=== PATIENT | male | born 1980 | race Caucasian/White ===

== ENCOUNTER 2016-07-12 08:43 | Emergency (ER) | payer OTHER ==
[~2016-07-12] VITALS: Ht 185.4 cm; Wt 89.9 kg
[~2016-07-12 08:43] MED LIST: ACET500C5 PO; CLIN-73 PO
[2016-07-12 08:48] VITALS: Ht 185.4 cm; Wt 89.9 kg
[2016-07-12] MEDS ORDERED: CIPR500T4 PO (10:29)
[2016-07-12] MEDS ORDERED: IBUP-1542 PO (10:30)
[2016-07-12] MEDS ORDERED: ELEC100080 PO (10:30)
[2016-07-12] MEDS ORDERED: ACET500C5 PO (10:31)
--- NOTE | 2016-07-12 10:42 | ERD ---
ER Documentation Chief Complaint Date/Time DATE: 07/12/16 TIME: 10:35 Chief Complaint ap with diarrhea x 3 days HPI Is a 35-year-old male who presents to the emergency department today with his complaining of multiple bouts of diarrhea for the past 4 days. Per the reports of the the diarrhea was bad and then stopped and then returned again. Mother states that the went to [place] one week ago when he came back diarrhea started shortly thereafter. States he had a fever last night of 103. States he took Motrin for his fever. States he is eating normally, denies any vomiting, blood in his stool, abdominal pain. ROS All systems reviewed and are negative except as per history of present illness. Medications Home Meds Active Scripts Acetaminophen* (Tylophen*) 500 Mg Capsule, 1 CAP PO Q6H Y for PAIN AND OR ELEVATED TEMP, #30 CAP Prov:RENA VALENCIAC 07/12/16 Ibuprofen* (Motrin*) 600 Mg Tab, 600 MG PO Q6, #30 TAB Prov:RENA VALENCIA PA-C 07/12/16 Electrolyte,Oral (Pedialyte) 1,000 Ml Solution, 100 ML PO Q6 Y for DIARRHEA, # 1000 ML Prov:RENA VALENCIA PA-C 07/12/16 Ciprofloxacin Hcl* (Ciprofloxacin Hcl*) 500 Mg Tablet, 500 MG PO BID for 5 Days , TAB Prov:RENA VALENCIAC 07/12/16 Clindamycin Hcl* (Clindamycin Hcl*) 300 Mg Capsule, 600 MG PO Q8 for 5 Days, CAP Prov:NANCY LYMAN PA-C 12/11/14 Acetaminophen* (Tylophen*) 500 Mg Capsule, 500 MG PO Q6H Y for PAIN, #20 TAB Prov:NANCY LYMANC 12/11/14 Allergies Allergies: Coded Allergies: No Known Allergy (Unverified , 12/13/14) PMhx/Soc Medical and Surgical Hx: pt denies Surgical Hx Hx Neurological Disorder: Yes (cva 3 eyars ago) Hx Alcohol Use: No Hx Substance Use: No Hx Tobacco Use: No Smoking Status: Never smoker Physical Exam Vitals Vital Signs Date Time Temp Pulse Resp B/P Pulse Ox O2 Delivery O2 Flow Rate FiO2 07/12/16 08:48 98.1 82 20 126/64 99 Physical Exam Const: No acute distress, sitting up Head: Atraumatic Eyes: Normal Conjunctiva ENT: Normal External Ears, Nose and Mouth. Neck: Full range of motion..~ No meningismus. Resp: Clear to auscultation bilaterally Cardio: Regular rate and rhythm, no murmurs Abd: Soft, non tender, non distended. Normal bowel sounds. No right lower quadrant pain. No left lower quadrant pain. Skin: No petechiae or rashes Neur: Awake and alert Psych: Normal Mood and Affect Procedures/MDM This is a 35-year-old male who presents the emergency department today complaining of multiple bouts of diarrhea and some fevers that started a couple days after he returned from [place] approximately 1 week ago. I do not feel the patient requires laboratory workup or imaging at this time given that he is eating normally and he is afebrile and he has no abdominal pain on physical exam. Patient symptoms at this time most consistent with diarrhea possibly traveler's diarrhea versus gastroenteritis. Low suspicion for acute surgical abdomen, diverticulitis. Patient will be given a prescription for Cipro, Pedialyte, Tylenol and Motrin. At this time the patient is stable for discharge and outpatient management. Patient should follow up with their PCP in the next 1-2 days. They may return to the emergency department sooner for any persistent or worsening of symptoms. Patient understood and agreed with the plan. Departure Diagnosis: Primary Impression: Diarrhea Diarrhea type: unspecified type Qualified Code: R19.7 - Diarrhea, unspecified type Condition: Fair Patient Instructions: Treating Diarrhea, Traveler's Diarrhea (6Y-Adult) Referrals: [facility] () Usted se rich hecho un examen mdico de control que le indica que no est en venancio condicin que requiera tratamiento urgente en el Departamento de Emergencia. Un estudio ms profundo y el tratamiento de nagy condicin pueden esperar sin ningn riesgo hasta que usted sea atendida/o en el consultorio de nagy mdico o venancio cl ciara. Es responsabilidad suya arreglar venancio kiana para el seguimiento del liza. MANEJO DE CONDICIONES NO URGENTES EN EL FUTURO 1) Si usted tiene un mdico de atencin primaria: Usted debera llamar a nagy mdico de atencin primaria antes de venir al departamento de emergencia. Despus de las horas de consultorio, nagy doctor o nagy asociado/a est disponible por telfono. El mdico o enfermero de suleiman en el servicio telefnico puede asesorarle por marek medio para atender el problema, o liza contrario se puede programar venancio kiana. 2) Si usted no tiene un mdico de atencin primaria: Llame al mdico o clnica de referencia que aparece abajo tiff las horas de consultorio para hacer venancio kiana para que le vean. CLINICAS: [facility] [phone] [facility] [phone] [address] [facility] [phone] [address] [facility] [facility] [phone] [address] [facility] [address] [place] [id number] [phone] [facility]. [phone] [address] Additional Instructions: Llame al doctor MAANA y vonnie venancio KIANA PARA DENTRO DE 1-2 TORRES.Dgale a la secretaria que nosotros le instruimos hacer esta kiana.Avise o llame si nagy condicin se empeora antes de la kiana. Regresa aqui si peor o no mejor. Take antibiotics as prescribed Take Pedialyte or Gatorade and drink plenty of clear fluids to stay hydrated Take Tylenol every 4 hours or Motrin every 6 hours for fever RENA VALENCIA PA-C Jul 12, 2016 10:42
== END 2016-07-12 10:51 | disposition home or self-care (01) ==
LOC: FTE 08:43
DX: R19.7 Diarrhea, unspecified (principal)
CPT/HCPCS: 99283

== ENCOUNTER 2017-01-10 20:18 | Emergency (ER) | payer OTHER ==
[~2017-01-10] VITALS: Ht 177.8 cm; Wt 76.0 kg
[~2017-01-10 20:18] MED LIST changes: +CIPR500T4 PO; +ELEC100080 PO; +IBUP-1542 PO
[2017-01-10 20:32] VITALS: Ht 177.8 cm; Wt 76.0 kg
[2017-01-10] MEDS ORDERED: LIDOCAINE 1% (MDV) 20 ML INJ SC ONE (22:00)
[2017-01-10] MEDS ORDERED: SULF1TAB31 PO (22:32)
[2017-01-10] MEDS ORDERED: CEPH-443 PO (22:32)
--- NOTE | 2017-01-11 03:31 | ERD ---
ER Documentation Chief Complaint Chief Complaint right thumb abscess HPI This is a 36-year-old male presenting to the emergency department for abscess to right thumb. Patient states he had a nail from a nail gun accidentally shot into his right thumb. Patient removed the nail immediately and then began having swelling. Patient states in the last 2 days the swelling has increased. Patient is also having pain to abscess. No numbness or tingling. No loss of sensation. ROS All systems reviewed and are negative except as per history of present illness. Medications Home Meds Active Scripts Cephalexin* (Keflex*) 500 Mg Capsule, 500 MG PO QID for 5 Days, CAP Prov:JOSE F FINE NP 01/10/17 Sulfamethoxazole/Trimethoprim* (Bactrim Ds* Tablet) 1 Each Tablet, 1 TAB PO BID , #14 TAB Prov:JOSE F FINE NP 01/10/17 Acetaminophen* (Tylophen*) 500 Mg Capsule, 1 CAP PO Q6H Y for PAIN AND OR ELEVATED TEMP, #30 CAP Prov:RENA VALENCIA PA-C 07/12/16 Ibuprofen* (Motrin*) 600 Mg Tab, 600 MG PO Q6, #30 TAB Prov:RENA VALENCIA PA-C 07/12/16 Electrolyte,Oral (Pedialyte) 1,000 Ml Solution, 100 ML PO Q6 Y for DIARRHEA, # 1000 ML Prov:RENA VALENCIAC 07/12/16 Ciprofloxacin Hcl* (Ciprofloxacin Hcl*) 500 Mg Tablet, 500 MG PO BID for 5 Days , TAB Prov:RENA VALENCIA PA-C 07/12/16 Clindamycin Hcl* (Clindamycin Hcl*) 300 Mg Capsule, 600 MG PO Q8 for 5 Days, CAP Prov:NANCY LYMAN PA-C 12/11/14 Acetaminophen* (Tylophen*) 500 Mg Capsule, 500 MG PO Q6H Y for PAIN, #20 TAB Prov:NANCY LYMAN PA-C 12/11/14 Allergies Allergies: Coded Allergies: No Known Allergy (Unverified , 12/13/14) PMhx/Soc Medical and Surgical Hx: pt denies Surgical Hx History of Surgery: No Hx Neurological Disorder: Yes (cva 2013) Hx Respiratory Disorders: No Hx Cardiac Disorders: No Hx Psychiatric Problems: No Hx Miscellaneous Medical Probl: No Hx Alcohol Use: No Hx Substance Use: No Hx Tobacco Use: No Smoking Status: Never smoker Physical Exam Vitals Vital Signs Date Time Temp Pulse Resp B/P Pulse Ox O2 Delivery O2 Flow Rate FiO2 01/10/17 20:32 98.2 69 20 136/83 99 Physical Exam Const: No acute distress, alert Head: Atraumatic Eyes: Normal Conjunctiva ENT: Normal External Ears, Nose and Mouth. Neck: Full range of motion..~ No meningismus. Resp: Clear to auscultation bilaterally Cardio: Regular rate and rhythm, no murmurs Abd: Soft, non tender, non distended. Normal bowel sounds Skin: 2cm raised lesion to palmar aspect of right thumb, no surrounding erythema, no drainage or warmth. no fluctuance. Back: No midline or flank tenderness Ext: No cyanosis, or edema Neur: Awake and alert Psych: Normal Mood and Affect Results 24 hrs Current Medications Medications (Trade) Dose Ordered Sig/January Route PRN Reason Start Time Stop Time Status Last Admin Dose Admin Lidocaine (Xylocaine 1% (Mdv) 20 ml) 20 ml ONCE ONCE SC 01/10/17 22:00 01/10/17 22:01 DC Procedures/MDM MDM: 36 year old male presents to ER with right thumb abscess 3 days after nail gun injury. There is no fluctuance on physical exam. No surrounding erythema, warmth or drainage. Patient is afebrile vital signs are stable. No indication for incision and drainage at this time. Patient is alert and nontoxic-appearing. Diagnosis is abscess. Low suspicion for deep space infection. Patient is appropriate for outpatient management only given prescription for Bactrim and Keflex. Instructed patient to return to the ED in 2 days for wound check. Instructed patient to use warm compress to right thumb for 20 minutes 3 times a day. Return to ED for any high fever, chest pain, difficulty breathing , shortness breath, wheezing, vomiting, diarrhea, abdominal pain or any new or worsening symptoms. Patient verbalizes understanding. All questions answered at discharge. Somali translation used during this encounter. Disclaimer: Inadvertent spelling and grammatical errors are likely due to EHR/ dictation software use and do not reflect on the overall quality of patient care. Also, please note that the electronic time recorded on this note does not necessarily reflect the actual time of the patient encounter. Departure Diagnosis: Primary Impression: Abscess Condition: Stable Patient Instructions: Abscess, Incision And Drainage Referrals: [facility] Usted se rich hecho un examen mdico de control que le indica que no est en venancio condicin que requiera tratamiento urgente en el Departamento de Emergencia. Un estudio ms profundo y el tratamiento de neumann condicin pueden esperar sin ningn riesgo hasta que usted sea atendida/o en el consultorio de neumann mdico o venancio cl ciara. Es responsabilidad suya arreglar venancio yehuda para el seguimiento del liza. MANEJO DE CONDICIONES NO URGENTES EN EL FUTURO 1) Si usted tiene un mdico de atencin primaria: Usted debera llamar a neumann mdico de atencin primaria antes de venir al departamento de emergencia. Despus de las horas de consultorio, neumann doctor o neumann asociado/a est disponible por telfono. El mdico o enfermero de suleiman en el servicio telefnico puede asesorarle por marek medio para atender el problema, o liza contrario se puede programar venancio yehuda. 2) Si usted no tiene un mdico de atencin primaria: Llame al mdico o clnica de referencia que aparece abajo tiff las horas de consultorio para hacer venancio yehuda para que le vean. CLINICAS: [facility] [phone] [address] [facility] [phone] [facility] [phone] [address] [facility]. [facility] [phone] [facility]. [facility] [phone] [address] [facility]. [phone] [address] [facility] () Usted se rich hecho un examen mdico de control que le indica que no est en venancio condicin que requiera tratamiento urgente en el Departamento de Emergencia. Un estudio ms profundo y el tratamiento de neumann condicin pueden esperar sin ningn riesgo hasta que usted sea atendida/o en el consultorio de neumann mdico o venancio cl ciara. Es responsabilidad suya arreglar venancio yehuda para el seguimiento del liza. MANEJO DE CONDICIONES NO URGENTES EN EL FUTURO 1) Si usted tiene un mdico de atencin primaria: Usted debera llamar a neumann mdico de atencin primaria antes de venir al departamento de emergencia. Despus de las horas de consultorio, neumann doctor o neumann asociado/a est disponible por telfono. El mdico o enfermero de suleiman en el servicio telefnico puede asesorarle por marek medio para atender el problema, o liza contrario se puede programar venancio yehuda. 2) Si usted no tiene un mdico de atencin primaria: Llame al mdico o condado institucions de referencia que aparece abajo tiff las horas de consultorio para hacer venancio yehuda para que le vean. SI USTED NO PUEDE PAGAR PARA BELLE UN MEDICO puede ir a: [facility] [address] [place] [address] [facility] [address] [place] [address] [facility] [address] [place] [address] PARA [facility] [address] [place], [place] [phone] Additional Instructions: WOUND CHECK:CONSULTE A NEUMANN MDICO EN 2 cole para belle NEUMANN HERIDA. Compresas tibias tiff 20 minutos 3 veces al da. Vuelva a Ed para cualquier fiebre gerda, dolor en el pecho, dificultad para respirar, respiracin entrecortada, sibilancias, vmitos, diarrea, dolor abdominal o cualquier sntoma nuevo o empeoramiento. JOSE F FINE NP Jan 11, 2017 03:30
--- NOTE | 2017-01-11 03:31 | ERD ---
ER Documentation Chief Complaint Chief Complaint right thumb abscess HPI This is a 36-year-old male presenting to the emergency department for abscess to right thumb. Patient states he had a nail from a nail gun accidentally shot into his right thumb. Patient removed the nail immediately and then began having swelling. Patient states in the last 2 days the swelling has increased. Patient is also having pain to abscess. No numbness or tingling. No loss of sensation. ROS All systems reviewed and are negative except as per history of present illness. Medications Home Meds Active Scripts Cephalexin* (Keflex*) 500 Mg Capsule, 500 MG PO QID for 5 Days, CAP Prov:JOSE F FINE NP 01/10/17 Sulfamethoxazole/Trimethoprim* (Bactrim Ds* Tablet) 1 Each Tablet, 1 TAB PO BID , #14 TAB Prov:JOSE F FINE NP 01/10/17 Acetaminophen* (Tylophen*) 500 Mg Capsule, 1 CAP PO Q6H Y for PAIN AND OR ELEVATED TEMP, #30 CAP Prov:RENA VALENCIA PA-C 07/12/16 Ibuprofen* (Motrin*) 600 Mg Tab, 600 MG PO Q6, #30 TAB Prov:RENA VALENCIA PA-C 07/12/16 Electrolyte,Oral (Pedialyte) 1,000 Ml Solution, 100 ML PO Q6 Y for DIARRHEA, # 1000 ML Prov:RENA VALENCIAC 07/12/16 Ciprofloxacin Hcl* (Ciprofloxacin Hcl*) 500 Mg Tablet, 500 MG PO BID for 5 Days , TAB Prov:RENA VALENCIA PA-C 07/12/16 Clindamycin Hcl* (Clindamycin Hcl*) 300 Mg Capsule, 600 MG PO Q8 for 5 Days, CAP Prov:NANCY LYMAN PA-C 12/11/14 Acetaminophen* (Tylophen*) 500 Mg Capsule, 500 MG PO Q6H Y for PAIN, #20 TAB Prov:NANCY LYMAN PA-C 12/11/14 Allergies Allergies: Coded Allergies: No Known Allergy (Unverified , 12/13/14) PMhx/Soc Medical and Surgical Hx: pt denies Surgical Hx History of Surgery: No Hx Neurological Disorder: Yes (cva 2013) Hx Respiratory Disorders: No Hx Cardiac Disorders: No Hx Psychiatric Problems: No Hx Miscellaneous Medical Probl: No Hx Alcohol Use: No Hx Substance Use: No Hx Tobacco Use: No Smoking Status: Never smoker Physical Exam Vitals Vital Signs Date Time Temp Pulse Resp B/P Pulse Ox O2 Delivery O2 Flow Rate FiO2 01/10/17 20:32 98.2 69 20 136/83 99 Physical Exam Const: No acute distress, alert Head: Atraumatic Eyes: Normal Conjunctiva ENT: Normal External Ears, Nose and Mouth. Neck: Full range of motion..~ No meningismus. Resp: Clear to auscultation bilaterally Cardio: Regular rate and rhythm, no murmurs Abd: Soft, non tender, non distended. Normal bowel sounds Skin: 2cm raised lesion to palmar aspect of right thumb, no surrounding erythema, no drainage or warmth. no fluctuance. Back: No midline or flank tenderness Ext: No cyanosis, or edema Neur: Awake and alert Psych: Normal Mood and Affect Results 24 hrs Current Medications Medications (Trade) Dose Ordered Sig/January Route PRN Reason Start Time Stop Time Status Last Admin Dose Admin Lidocaine (Xylocaine 1% (Mdv) 20 ml) 20 ml ONCE ONCE SC 01/10/17 22:00 01/10/17 22:01 DC Procedures/MDM MDM: 36 year old male presents to ER with right thumb abscess 3 days after nail gun injury. There is no fluctuance on physical exam. No surrounding erythema, warmth or drainage. Patient is afebrile vital signs are stable. No indication for incision and drainage at this time. Patient is alert and nontoxic-appearing. Diagnosis is abscess. Low suspicion for deep space infection. Patient is appropriate for outpatient management only given prescription for Bactrim and Keflex. Instructed patient to return to the ED in 2 days for wound check. Instructed patient to use warm compress to right thumb for 20 minutes 3 times a day. Return to ED for any high fever, chest pain, difficulty breathing , shortness breath, wheezing, vomiting, diarrhea, abdominal pain or any new or worsening symptoms. Patient verbalizes understanding. All questions answered at discharge. Cuban translation used during this encounter. Disclaimer: Inadvertent spelling and grammatical errors are likely due to EHR/ dictation software use and do not reflect on the overall quality of patient care. Also, please note that the electronic time recorded on this note does not necessarily reflect the actual time of the patient encounter. Departure Diagnosis: Primary Impression: Abscess Condition: Stable Patient Instructions: Abscess, Incision And Drainage Referrals: [facility] Usted se rich hecho un examen mdico de control que le indica que no est en venancio condicin que requiera tratamiento urgente en el Departamento de Emergencia. Un estudio ms profundo y el tratamiento de neumann condicin pueden esperar sin ningn riesgo hasta que usted sea atendida/o en el consultorio de neumann mdico o venancio cl ciara. Es responsabilidad suya arreglar venancio yehuda para el seguimiento del liza. MANEJO DE CONDICIONES NO URGENTES EN EL FUTURO 1) Si usted tiene un mdico de atencin primaria: Usted debera llamar a neumann mdico de atencin primaria antes de venir al departamento de emergencia. Despus de las horas de consultorio, neumann doctor o neumann asociado/a est disponible por telfono. El mdico o enfermero de suleiman en el servicio telefnico puede asesorarle por marek medio para atender el problema, o liza contrario se puede programar venancio yehuda. 2) Si usted no tiene un mdico de atencin primaria: Llame al mdico o clnica de referencia que aparece abajo tiff las horas de consultorio para hacer venancio yehuda para que le vean. CLINICAS: [facility] [phone] [facility] [phone] [facility] [phone] [address] [facility]. [facility] [phone] [facility]. [facility] [phone] [address] [facility]. [phone] [address] [facility] () Usted se rich hecho un examen mdico de control que le indica que no est en venancio condicin que requiera tratamiento urgente en el Departamento de Emergencia. Un estudio ms profundo y el tratamiento de neumann condicin pueden esperar sin ningn riesgo hasta que usted sea atendida/o en el consultorio de neumann mdico o venancio cl ciara. Es responsabilidad suya arreglar venancio yehuda para el seguimiento del liza. MANEJO DE CONDICIONES NO URGENTES EN EL FUTURO 1) Si usted tiene un mdico de atencin primaria: Usted debera llamar a neumann mdico de atencin primaria antes de venir al departamento de emergencia. Despus de las horas de consultorio, neumann doctor o neumann asociado/a est disponible por telfono. El mdico o enfermero de suleiman en el servicio telefnico puede asesorarle por marek medio para atender el problema, o liza contrario se puede programar venancio yehuda. 2) Si usted no tiene un mdico de atencin primaria: Llame al mdico o condado institucions de referencia que aparece abajo tiff las horas de consultorio para hacer venancio yehuda para que le vean. SI USTED NO PUEDE PAGAR PARA BELLE UN MEDICO puede ir a: [facility] [address] [place] [address] [facility] [address] [place] [address] [facility] [address] [place] [address] [facility] [facility] [address] [place], [place] [phone] Additional Instructions: WOUND CHECK:CONSULTE A NEUMANN MDICO EN 2 coel para belle NEUMANN HERIDA. Compresas tibias tiff 20 minutos 3 veces al da. Vuelva a Ed para cualquier fiebre gerda, dolor en el pecho, dificultad para respirar, respiracin entrecortada, sibilancias, vmitos, diarrea, dolor abdominal o cualquier sntoma nuevo o empeoramiento. JOSE F FINE NP Jan 11, 2017 03:30
--- NOTE | 2017-01-11 03:31 | ERD ---
ER Documentation Chief Complaint Chief Complaint right thumb abscess HPI This is a 36-year-old male presenting to the emergency department for abscess to right thumb. Patient states he had a nail from a nail gun accidentally shot into his right thumb. Patient removed the nail immediately and then began having swelling. Patient states in the last 2 days the swelling has increased. Patient is also having pain to abscess. No numbness or tingling. No loss of sensation. ROS All systems reviewed and are negative except as per history of present illness. Medications Home Meds Active Scripts Cephalexin* (Keflex*) 500 Mg Capsule, 500 MG PO QID for 5 Days, CAP Prov:JOSE F FINE NP 01/10/17 Sulfamethoxazole/Trimethoprim* (Bactrim Ds* Tablet) 1 Each Tablet, 1 TAB PO BID , #14 TAB Prov:JOSE F FINE NP 01/10/17 Acetaminophen* (Tylophen*) 500 Mg Capsule, 1 CAP PO Q6H Y for PAIN AND OR ELEVATED TEMP, #30 CAP Prov:REAN VALENCIA PA-C 07/12/16 Ibuprofen* (Motrin*) 600 Mg Tab, 600 MG PO Q6, #30 TAB Prov:RENA VALENCIA PA-C 07/12/16 Electrolyte,Oral (Pedialyte) 1,000 Ml Solution, 100 ML PO Q6 Y for DIARRHEA, # 1000 ML Prov:RENA VALENCIAC 07/12/16 Ciprofloxacin Hcl* (Ciprofloxacin Hcl*) 500 Mg Tablet, 500 MG PO BID for 5 Days , TAB Prov:RENA VALENCIA PA-C 07/12/16 Clindamycin Hcl* (Clindamycin Hcl*) 300 Mg Capsule, 600 MG PO Q8 for 5 Days, CAP Prov:NANCY LYMAN PA-C 12/11/14 Acetaminophen* (Tylophen*) 500 Mg Capsule, 500 MG PO Q6H Y for PAIN, #20 TAB Prov:NANCY LYMAN PA-C 12/11/14 Allergies Allergies: Coded Allergies: No Known Allergy (Unverified , 12/13/14) PMhx/Soc Medical and Surgical Hx: pt denies Surgical Hx History of Surgery: No Hx Neurological Disorder: Yes (cva 2013) Hx Respiratory Disorders: No Hx Cardiac Disorders: No Hx Psychiatric Problems: No Hx Miscellaneous Medical Probl: No Hx Alcohol Use: No Hx Substance Use: No Hx Tobacco Use: No Smoking Status: Never smoker Physical Exam Vitals Vital Signs Date Time Temp Pulse Resp B/P Pulse Ox O2 Delivery O2 Flow Rate FiO2 01/10/17 20:32 98.2 69 20 136/83 99 Physical Exam Const: No acute distress, alert Head: Atraumatic Eyes: Normal Conjunctiva ENT: Normal External Ears, Nose and Mouth. Neck: Full range of motion..~ No meningismus. Resp: Clear to auscultation bilaterally Cardio: Regular rate and rhythm, no murmurs Abd: Soft, non tender, non distended. Normal bowel sounds Skin: 2cm raised lesion to palmar aspect of right thumb, no surrounding erythema, no drainage or warmth. no fluctuance. Back: No midline or flank tenderness Ext: No cyanosis, or edema Neur: Awake and alert Psych: Normal Mood and Affect Results 24 hrs Current Medications Medications (Trade) Dose Ordered Sig/January Route PRN Reason Start Time Stop Time Status Last Admin Dose Admin Lidocaine (Xylocaine 1% (Mdv) 20 ml) 20 ml ONCE ONCE SC 01/10/17 22:00 01/10/17 22:01 DC Procedures/MDM MDM: 36 year old male presents to ER with right thumb abscess 3 days after nail gun injury. There is no fluctuance on physical exam. No surrounding erythema, warmth or drainage. Patient is afebrile vital signs are stable. No indication for incision and drainage at this time. Patient is alert and nontoxic-appearing. Diagnosis is abscess. Low suspicion for deep space infection. Patient is appropriate for outpatient management only given prescription for Bactrim and Keflex. Instructed patient to return to the ED in 2 days for wound check. Instructed patient to use warm compress to right thumb for 20 minutes 3 times a day. Return to ED for any high fever, chest pain, difficulty breathing , shortness breath, wheezing, vomiting, diarrhea, abdominal pain or any new or worsening symptoms. Patient verbalizes understanding. All questions answered at discharge. Nicaraguan translation used during this encounter. Disclaimer: Inadvertent spelling and grammatical errors are likely due to EHR/ dictation software use and do not reflect on the overall quality of patient care. Also, please note that the electronic time recorded on this note does not necessarily reflect the actual time of the patient encounter. Departure Diagnosis: Primary Impression: Abscess Condition: Stable Patient Instructions: Abscess, Incision And Drainage Ref[facility] Usted se rich hecho un examen mdico de control que le indica que no est en venancio condicin que requiera tratamiento urgente en el Departamento de Emergencia. Un estudio ms profundo y el tratamiento de neumann condicin pueden esperar sin ningn riesgo hasta que usted sea atendida/o en el consultorio de neumann mdico o venancio cl ciara. Es responsabilidad suya arreglar venancio yehuda para el seguimiento del liza. MANEJO DE CONDICIONES NO URGENTES EN EL FUTURO 1) Si usted tiene un mdico de atencin primaria: Usted debera llamar a neumann mdico de atencin primaria antes de venir al departamento de emergencia. Despus de las horas de consultorio, neumann doctor o neumann asociado/a est disponible por telfono. El mdico o enfermero de suleiman en el servicio telefnico puede asesorarle por marek medio para atender el problema, o liza contrario se puede programar venancio yehuda. 2) Si usted no tiene un mdico de atencin primaria: Llame al mdico o clnica de referencia que aparece abajo tiff las horas de consultorio para hacer venancio yehuda para que le vean. CLINICAS: [facility] [phone] [address] [facility] [facility] [phone] [facility] [phone] [address] [facility]. [facility] [phone] [facility]. [facility] [phone] [address] [facility]. [phone] [address] [facility] () Usted se rich hecho un examen mdico de control que le indica que no est en venancio condicin que requiera tratamiento urgente en el Departamento de Emergencia. Un estudio ms profundo y el tratamiento de neumann condicin pueden esperar sin ningn riesgo hasta que usted sea atendida/o en el consultorio de neumann mdico o venancio cl ciara. Es responsabilidad suya arreglar venancio yehuda para el seguimiento del liza. MANEJO DE CONDICIONES NO URGENTES EN EL FUTURO 1) Si usted tiene un mdico de atencin primaria: Usted debera llamar a neumann mdico de atencin primaria antes de venir al departamento de emergencia. Despus de las horas de consultorio, neumann doctor o neumann asociado/a est disponible por telfono. El mdico o enfermero de suleiman en el servicio telefnico puede asesorarle por marek medio para atender el problema, o liza contrario se puede programar venancio yehuda. 2) Si usted no tiene un mdico de atencin primaria: Llame al mdico o condado institucions de referencia que aparece abajo tiff las horas de consultorio para hacer venancio yehuda para que le vean. SI USTED NO PUEDE PAGAR PARA BELLE UN MEDICO puede ir a: [facility] [address] [place] [address] [facility] [address] [place] [address] [facility] [address] [place] [address] [facility] [address] [place] [place], [place] [id number] Additional Instructions: WOUND CHECK:CONSULTE A NEUMANN MDICO EN 2 cole para belle NEUMANN HERIDA. Compresas tibias tiff 20 minutos 3 veces al da. Vuelva a Ed para cualquier fiebre gerda, dolor en el pecho, dificultad para respirar, respiracin entrecortada, sibilancias, vmitos, diarrea, dolor abdominal o cualquier sntoma nuevo o empeoramiento. JOSE F FINE NP Jan 11, 2017 03:30
== END 2017-01-10 22:51 | disposition home or self-care (01) ==
LOC: FTE 20:18
DX: L02.511 Cutaneous abscess of right hand (principal)
CPT/HCPCS: Z7502; Z7610; 99284

== ENCOUNTER 2017-01-12 20:07 | Emergency (ER) | payer OTHER ==
[~2017-01-12] VITALS: Ht 172.7 cm; Wt 115.5 kg
[~2017-01-12 20:07] MED LIST changes: +CEPH-443 PO; +SULF1TAB31 PO
[2017-01-12 20:11] VITALS: Ht 172.7 cm; Wt 115.5 kg
[2017-01-12] MEDS ORDERED: LIDOCAINE 1% (MDV) 20 ML INJ SC ONE (21:00)
[2017-01-12] MEDS ORDERED: HYDR-902 PO (21:12)
--- NOTE | 2017-01-12 21:12 | ERD ---
ER Documentation Chief Complaint Chief Complaint right thumb wound recheck. Pt last seen on 01/10/17 HPI 36-year-old male presents here in the department for complaints of an abscess in the right thumb, was seen here 2 days ago, had a drainage done, was unable to drain a bunch of fluids, now patient is complaining of more pain and swelling. Patient is currently taking Keflex and Bactrim for the pain. Patient describes the pain as throbbing pain, 6/10 scale, is worse on touching the area. Patient did not take any medications to help with symptoms. ROS All systems reviewed and are negative except as per history of present illness. Medications Home Meds Active Scripts Cephalexin* (Keflex*) 500 Mg Capsule, 500 MG PO QID for 5 Days, CAP Prov:JOSE F FINE NP 01/10/17 Sulfamethoxazole/Trimethoprim* (Bactrim Ds* Tablet) 1 Each Tablet, 1 TAB PO BID , #14 TAB Prov:JOSE F FINE NP 01/10/17 Acetaminophen* (Tylophen*) 500 Mg Capsule, 1 CAP PO Q6H Y for PAIN AND OR ELEVATED TEMP, #30 CAP Prov:RENA VALENCIA-C 07/12/16 Ibuprofen* (Motrin*) 600 Mg Tab, 600 MG PO Q6, #30 TAB Prov:RENA VALENCIA-C 07/12/16 Electrolyte,Oral (Pedialyte) 1,000 Ml Solution, 100 ML PO Q6 Y for DIARRHEA, # 1000 ML Prov:RENA VALENCIA-C 07/12/16 Ciprofloxacin Hcl* (Ciprofloxacin Hcl*) 500 Mg Tablet, 500 MG PO BID for 5 Days , TAB Prov:RENA VALENCIA-C 07/12/16 Clindamycin Hcl* (Clindamycin Hcl*) 300 Mg Capsule, 600 MG PO Q8 for 5 Days, CAP Prov:NANCY LYMANC 12/11/14 Acetaminophen* (Tylophen*) 500 Mg Capsule, 500 MG PO Q6H Y for PAIN, #20 TAB Prov:NANCY YLMANC 12/11/14 Allergies Allergies: Coded Allergies: No Known Allergy (Unverified , 01/12/17) PMhx/Soc Medical and Surgical Hx: pt denies Surgical Hx History of Surgery: No Hx Neurological Disorder: Yes (cva 2013) Hx Respiratory Disorders: No Hx Cardiac Disorders: No Hx Psychiatric Problems: No Hx Miscellaneous Medical Probl: No Hx Alcohol Use: No Hx Substance Use: No Hx Tobacco Use: No FmHx Family History: No coronary disease, No diabetes, No other Physical Exam Vitals Vital Signs Date Time Temp Pulse Resp B/P Pulse Ox O2 Delivery O2 Flow Rate FiO2 01/12/17 20:11 97.4 75 18 133/77 98 Physical Exam GENERAL: The patient is well developed and appropriate for usual state of health, in no apparent distress. CHEST: Clear to auscultation bilaterally. There are no rales, wheezes or rhonchi. HEART: Regular rate and rhythm. No murmurs, clicks, rubs or gallops. No S3 or S4. ABDOMEN: Soft, nontender and nondistended. Good bowel sounds. No rebound or guarding. No gross peritonitis. No gross organomegaly or masses. No Boyd sign or McBurney point tenderness. BACK: No midline or flank tenderness. EXTREMITIES: Equal pulses bilaterally. There is no peripheral clubbing, cyanosis or edema. No focal swelling or erythema. Full range of motion. Grossly neurovascularly intact. NEURO: Alert and oriented. Cranial nerves 2-12 intact. Motor strength in all 4 extremities with 5/5 strength. Sensation grossly intact. Normal speech and gait. SKIN: Noted erythema induration fluctuance on the palmar aspect of the right thumb, tender on palpation, 2 cm diameter. There is no apparent rash or petechia. The skin is warm and dry. HEMATOLOGIC AND LYMPHATIC: There is no evidence of excessive bruising or lymphedema. No gross cervical, axillary, or inguinal lymphadenopathy. Results 24 hrs Current Medications Medications (Trade) Dose Ordered Sig/January Route PRN Reason Start Time Stop Time Status Last Admin Dose Admin Lidocaine (Xylocaine 1% (Mdv) 20 ml) 2 ml ONCE ONCE SC 01/12/17 21:00 01/12/17 21:01 Procedures/MDM Procedure Note: After obtaining informed consent, the wound was irrigated with 250 ml of normal saline and cleaned with diluted betadine. Using aseptic technique, 3 ml of 1% lidocaine was injected on the subcutaneous tissue of the abscess where the fluctuant area is at. After the anesthetic, a 1 cm incision was done in the middle of the fluctuant area of the abscess. Pustular discharge was drained from the abscess. The abscess wound was loosely packed with iodoform dressing. After the procedure, dry dressing was applied on the area. Patient tolerated procedure well. Medical decision making: Patient symptoms was likely is consistent with soft tissue abscess, incision and drainage was done. No symptoms of any neurovascular compromise, no symptoms of any necrosis. No symptoms of any sepsis. Prescription was already given for Bactrim and Keflex, was advised to continue taking the medications. Patient was given Rogers for severe pain. Patient was advised to return in 2 days for recheck and dressing change. Patient was advised to return sooner for any worsening symptoms. Disposition: Home. Stable Departure Diagnosis: Primary Impression: Abscess Condition: Stable Patient Instructions: Abscess (, Incision And Drainage) Additional Instructions: return 2 days for recheck and dressing change YU BOWLES NP Jan 12, 2017 21:09
[2017-01-12] MEDS ORDERED: HYDROCODONE/APAP (10/325) TAB PO ONE (21:30)
== END 2017-01-12 21:47 | disposition home or self-care (01) ==
LOC: FTE 20:07
DX: L02.511 Cutaneous abscess of right hand (principal)
CPT/HCPCS: 10061; Z7502; Z7610